=== PATIENT | male | born 1955 | race Caucasian/White ===

== ENCOUNTER 2016-05-12 08:22 | Day surgery (SDC) | payer OTHER | END 2016-05-12 10:30 | disposition short-term general hospital (02) | LOC: SURGOP 08:22 | PROC: 0DBK8ZX Excision of Ascending Colon, Via Natural or Artificial Opening Endoscopic, Diagnostic (ICD-10-PCS; principal; 2016-05-12) | PROC: 0DBL8ZX Excision of Transverse Colon, Via Natural or Artificial Opening Endoscopic, Diagnostic (ICD-10-PCS; 2016-05-12) | DX: Z12.11 Encounter for screening for malignant neoplasm of colon (principal); D12.2 Benign neoplasm of ascending colon; K63.5 Polyp of colon; Z80.0 Family history of malignant neoplasm of digestive organs; Z98.890 Other specified postprocedural states | CPT/HCPCS: J2175; J2250 ==